=== PATIENT | female | born 1990 | race Two or more races ===

== ENCOUNTER 2020-10-18 10:18 | Emergency (ER) | payer SELFPAY ==
[~2020-10-18] VITALS: Ht 154.9 cm; Wt 68.0 kg
== END 2020-10-18 11:32 | disposition home or self-care (01) ==
LOC: ER 10:29
DX: R53.83 Other fatigue (principal)
CPT/HCPCS: 99282

== ENCOUNTER 2021-04-16 21:09 | Emergency (ER) | payer OTHER ==
[~2021-04-16] VITALS: Ht 154.9 cm; Wt 68.0 kg
[2021-04-16] MEDS ORDERED: KETOROLAC TROMETHAMINE 60 MG/2 ML VIAL IM ONE (22:15)
[2021-04-16] MEDS ORDERED: KETOROLAC TROMETHAMINE 60 MG/2 ML VIAL ONE (22:22)
[2021-04-16 23:48] VITALS: BP 140/95
== END 2021-04-16 23:48 | disposition home or self-care (01) ==
LOC: FSED 22:10
DX: R68.84 Jaw pain (principal); S00.83XA Contusion of other part of head, initial encounter; Y04.0XXA Assault by unarmed brawl or fight, initial encounter; Y92.89 Other specified places as the place of occurrence of the external cause
CPT/HCPCS: 70450; 70486; 72125; J1885; 96372; 99283